=== PATIENT | female | born 1985 | race Hispanic/Latino ===

== ENCOUNTER 2020-05-03 17:14 | Emergency (ER) | payer OTHER, SELFPAY ==
[2020-05-03] VITALS (7 sets, daily range): BP systolic 119–134; BP diastolic 68–92; PULSE 92–148; RESP 16–24; TEMP 36.6–36.8; O2SAT 99–100
--- NOTE | ~2020-05-03 | XR_ITS ---
EXAMINATION: XR chest 1V portable DATE: 05/03/2020 18:32 INDICATION: Possible allergic reaction with swollen throat. Syncopal episode. TECHNIQUE: frontal view of the chest was obtained. COMPARISON: None FINDINGS: The lungs are clear with no focal airspace opacities, pulmonary edema, pleural effusion or pneumothor ax. The cardiomediastinal silhouette is normal. Visualized bones and soft tissues are unremarkable. IMPRESSION: 1. No acute cardiopulmonary disease. Reviewed, dictated and finalized at location A. SHOE PERSON
--- NOTE | ~2020-05-03 | CT_ITS ---
EXAMINATION: CT brain wo con DATE: 05/03/2020 18:47 INDICATION: Confusion TECHNIQUE: Computed tomography (CT) of the head was performed without intravenous contrast. Sagittal and coronal reconstructions were performed. The mA was adjusted according to patient size. Iterative reconstruction technique was employed. The dose-length product was 605.33 mGy-cm. COMPARISON: None FINDINGS: No acute intracranial hemorrhage, acute infarction or abnormal extra axial fluid collection. Ventricl es are normal and symmetric. No mass/mass effect. The orbits, paranasal sinuses and mastoid air cells are normal. IMPRESSION: 1. Normal head CT. Reviewed, dictated and finalized at location A. BUILDER MACHINE IMPRESSION: 1. Normal head CT.
--- NOTE | 2020-05-03 17:22 | ECG_ITS ---
Measurements Intervals [place] Rate: 102 P: 68 MI: 124 QRS: 69 QRSD: 95 T: 72 QT: 347 QTc: 454 Interpretive Statements SINUS TACHYCARDIA INCOMPLETE RIGHT BUNDLE BRANCH BLOCK NONSPECIFIC ST & T-WAVE ABNORMALITY- DIFFUSE LEADS BORDERLINE ECG Electronically Signed On 05-04-2020 8:08:42 UNDERWRITING ACCOUNT REPRESENTATIVE by Fred Barnes D.O.
[2020-05-03] MEDS: LORazepam INJ (*CRX) 2 MG/ML VIAL (17:29)
--- NOTE | 2020-05-03 17:41 | PC.NURSE ---
Called lab to add on Ashley @ [phone]
[2020-05-03 17:45] LABS: Basophils Percent Auto 0.4 % (0.2-1.2); Eosinophils Percent Auto 0.1 % (0-4.4); Hematocrit 35.4 % (37.0-47.0); Hemoglobin 12.3 g/dL (12.0-15.0); Immature Granulocyte Absolute 0.02 K/mm3 (0.00-0.031); Immature Granulocyte Percent A 0.3 % (0-0.5); Lymphocytes Absolute Auto 1.96 K/mm3 (0.9-3.2); Lymphocytes Percent Auto 26.2 % (18.3-44.2); Mean Corpuscular HGB Conc 34.7 g/dl (32-36); Mean Corpuscular Hemoglobin 31.4 pg (26-34); Mean Corpuscular Volume 90.3 fl (80-100); Mean Platelet Volume 10.1 fl (7.4-10.4); Monocytes Absolute Auto 0.3 K/mm3 (0.1-0.6); Monocytes Percent Auto 4.3 % (2.6-8.5); Neutrophils Absolute Auto 5.1 K/mm3 (1.3-6.7); Neutrophils Percent Auto 68.7 % (45.5-73.1); Platelet Count Result 302 k/mm3 (150-375); Red Blood Count 3.92 M/mm3 (4.2-5.4); Red Cell Distribution Width 12.5 % (11.5-14.5); White Blood Count 7.5 K/mm3 (4.5-10.0)
--- NOTE | 2020-05-03 17:54 | ED.GENADULT ---
HPI - General Adult General Chief complaint: Fall Stated complaint: abd pain, syncopal episode Source: patient and family Mode of arrival: EMS Limitations: altered mental status History of Present Illness HPI narrative: Patient is a 35-year-old female who presents to emergency department for evaluation of altered mentation patient had syncopal episode at home and was shaking uncontrollably EMS was contacted patient was brought in patient was given Benadryl in route by EMS with no improvement on arrival patient is trembling shaking notes that she is having difficulty with speaking patient denies other focal neurologic deficits there has been no similar occurrence in the past patient did have some edible cannabis today but has been taking this. Chronically and is prescribed. Patient was recently placed on doxycycline by her specialist at the [facility] and is being worked up for a pelvic abnormality is unsure as to the etiology. Patient was fine today patient did not have any injury or trauma patient is currently on doxycycline prophylactically for her vaginal abnormality and is scheduled to follow-up with gynecology in the near future. Patient is currently on her period Related Data Home Medications Medication Instructions Recorded Confirmed doxycycline hyclate 100 mg PO BID 05/03/20 Allergies Allergy/AdvReac Type Severity Reaction Status Date / Time No Known Allergies Allergy Verified 05/03/20 17:17 Review of Systems Review of Systems: ROS unobtainable: Yes unobtainable due to medical condition PMFSH Social History Social History (Updated 05/03/20 @ 19:01 by Danny Hernandes PA-C) Smoking status: Never smoker Exam Narrative: Exam Narrative: GENERAL: Well-appearing, well-nourished, and in no acute distress. HEAD: Normocephalic, atraumatic. EYES: PERRLA and EOMI. ENT: Nares clear, no rhinorrhea or epistaxis. Mucous membranes moist. NECK: Supple. No adenopathy or masses. CHEST: Clear to auscultation. No respiratory distress. No wheezes rales or rhonchi HEART: Regular rate and rhythm. No murmur heard. Normal peripheral pulses. ABDOMEN: Soft, nontender, nondistended, EXTREMITIES: Normal range of motion. No edema. SKIN: Warm, dry, no rash. NEURO: No focal deficits. Alert and oriented. Cranial nerves II through XII grossly intact. PSYCH: Acutely anxious appearing Course Course Emergency Course: Patient evaluated the emergency department has had drastic improvement is speaking feels completely fine at this time unsure as to the etiology of her episode could be stress reaction anxiety most likely patient feels comfortable to go home will be discharged with her and will follow up with primary care and specialty services Vital Signs Vital signs: Vital Signs Temperature 98.3 F 05/03/20 17:11 Pulse Rate 148 H 05/03/20 17:11 Respiratory Rate 24 H 05/03/20 17:11 Pulse Oximetry 99 05/03/20 17:11 Temperature 97.8 F 05/03/20 20:00 Pulse Rate 92 05/03/20 20:00 Respiratory Rate 21 H 05/03/20 20:00 Blood Pressure 119/72 05/03/20 20:00 Pulse Oximetry 100 05/03/20 20:00 Medical Decision Making MDM Narrative Medical decision making narrative: Patient was evaluated in the emergency department for altered mentation had drastic improvement after fluids and Ativan was evaluated for several hours patient resting comfortably denying any symptoms at this time will be discharged with with outpatient follow-up ABCs and vital signs intact and stable no high risk changes in the blood work or imaging Vital Signs Vital Signs: Vital Signs Temperature 98.3 F 05/03/20 17:11 Pulse Rate 148 H 05/03/20 17:11 Respiratory Rate 24 H 05/03/20 17:11 Pulse Oximetry 99 05/03/20 17:11 Temperature 97.8 F 05/03/20 20:00 Pulse Rate 92 05/03/20 20:00 Respiratory Rate 21 H 05/03/20 20:00 Blood Pressure 119/72 05/03/20 20:00 Pulse Oximetry 100 05/03/20 20:00 Lab Data Res
[2020-05-03 17:56] LABS: Lactic Acid Reflex 1.8 mmol/L (0.7-2.1)
[2020-05-03 17:57] LABS: Alanine Aminotransferase 21 U/L (4-35); Albumin Level 4.7 g/dL (3.5-5.1); Alkaline Phosphatase 59 U/L (38-126); Anion Gap 9 mmol/L (8-16); Aspartate Amino Transferase 26 U/L (14-36); Bilirubin,Total 0.4 mg/dL (0.2-1.3); Blood Urea Nitrogen 11 mg/dL (7-17); Calcium 9.2 mg/dL (8.4-10.2); Carbon Dioxide 24 mmol/L (22-30); Chloride 105 mmol/L (98-107); Estimated CRCL calculation 81 ml/min; Estimated Glomerular Filt Rate > 60; Glucose 137 mg/dL (65-105); Potassium 3.3 mmol/L (3.4-5.0); Sodium 138 mmol/L (137-145)
[2020-05-03] MEDS: FAMOTIDINE 20 MG/2 ML VIAL IV PUSH (17:59)
[2020-05-03] MEDS: SODIUM CHLORIDE 0.9% IV 1,000 ML 999 ML IV CONT (18:00)
--- NOTE | 2020-05-03 18:00 | PC.NURSE ---
Patient appears asleep. Opens eyes but does not want to speak. Family member answering questions for patient tells me she can't talk Patient opens mouth to talk but is either unable to speak or unwilling to speak. I told patient that she needs to answer questions. She was able to answer the questions and is alert and oriented. She appears to return to sleep after this assessment.
[2020-05-03 18:01] LABS: D Dimer 0.27 ug/mL (<0.48)
[2020-05-03 18:10] LABS: Alveolar/Arterial O2 Gradient 17.9 mmHg; Base Excess ABG -3.2 mEq/l (+/-2.0); Carboxyhemoglobin 0.3 % THb (0-2.0); Fractional Inspired Oxygen 21 %; HCO3 ABG 20.6 mEq/l (22.0-26.0); Methemoglobin ABG 0.3 %THb (0-1.5); Oxygen Content ABG 16.4 %vol (16.0-22.0); Oxygen Saturation ABG 97.2 % (95.0-100.0); Oxyhemoglobin 95.7 % THb (90.0-100.0); PCO2 ABG 32.9 mmHg (35.0-45.0); PO2 ABG 92.4 mmHg (80.0-100.0); Reduced Hemoglobin 3.7 %THb (0-5.0); Total Hemoglobin 12.1 g/dL (12.0-18.0); pH ABG 7.415 (7.350-7.450)
[2020-05-03 18:11] LABS: Device ROOM AIR; Site Drawn RIGHT BRACHIAL
[2020-05-03 18:35] LABS: Add Urine Microscopic? YES; Appearance Urine Clear (Clear); Bacteria Urine Trace /hpf; Bilirubin Urine Negative (Negative); Blood Urine 3+ (Negative); Color Urine Yellow (Yellow); Glucose Urine UA Negative (Negative); Ketones Urine Trace mg/dL (Negative); Leukocyte Esterase Ur Negative LEU/UL (Negative); Mucus Urine Few /lpf; Nitrate Urine Negative (Negative); Protein Urine 1+ mg/dL (Negative); RBC Urine >75 /hpf (0-2); Specific Grav Ur 1.025 (1.001-1.035); Squamous Epithelial Cell Urine Few /hpf (Few); Urobilinogen Urine Negative mg/dL (<2.0); WBC Urine 0-3 /hpf
[2020-05-03 18:48] LABS: Amphetamine Screen Urine Negative (Negative); Barbiturate Screen Urine Negative (Negative); Benzodiazepines Screen Urine Negative (Negative); Cannabinoid Screen Urine Positive (Negative); Cocaine Screen Urine Negative (Negative); Methadone Screen Urine Negative (Negative); Opiate Screen Urine Negative (Negative); Phencyclidine Screen Urine Negative (Negative)
== END 2020-05-03 20:45 | disposition home or self-care (01) ==
PROVIDERS: Emergency Medicine Emergency Medical Services; Emergency Provider Emergency Medicine
DX: R41.82 Altered mental status, unspecified (principal); R00.0 Tachycardia, unspecified; I45.10 Unspecified right bundle-branch block; Z79.899 Other long term (current) drug therapy
CPT/HCPCS: 36415; 36600; 70450; 71045; 80053; 80307; 81001; 81025; 82375; 82805; 83050; 83605; 85025; 85380; 93005; 96361; 96374; 96375; 99284; J2060; J7030